=== PATIENT | female | born 1990 | race African-American/Black ===

== ENCOUNTER 2022-07-27 08:56 | Emergency (ER) | payer MEDICAID ==
[~2022-07-27] VITALS: Ht 172.7 cm; Wt 68.0 kg
[2022-07-27] MEDS ORDERED: DEXAMETHASONE 10 MG/ML VIAL IV ONE (10:15)
[2022-07-27 10:51] VITALS: BP 125/64
== END 2022-07-27 10:52 | disposition home or self-care (01) ==
LOC: ER 08:56
DX: R07.0 Pain in throat (principal)
CPT/HCPCS: 96374; 99283; J1100

== ENCOUNTER 2023-09-18 07:39 | Emergency (ER) | payer MEDICAID, OTHER ==
[~2023-09-18] VITALS: Ht 170.2 cm; Wt 73.0 kg
[2023-09-18 07:43] VITALS: O2SAT 98
[2023-09-18] MEDS ORDERED: KETOROLAC 60MG/2ML VIAL IM ONE (09:00)
[2023-09-18 10:26] VITALS: BP 121/79; PULSE 74; RESP 15; TEMP 97.8
[2023-09-18] MEDS ORDERED: D-ME118S56 MT (10:44)
== END 2023-09-18 11:23 | disposition home or self-care (01) ==
LOC: ER 07:39
DX: B34.9 Viral infection, unspecified (principal); Z20.822 Contact with and (suspected) exposure to COVID-19
CPT/HCPCS: 99283; 87426; 81025; 87420; 87804 ×2; 96372; J1885

== ENCOUNTER 2023-09-30 14:37 | Emergency (ER) | payer OTHER ==
[~2023-09-30] VITALS: Ht 172.7 cm; Wt 77.0 kg
[~2023-09-30 14:37] MED LIST: D-ME118S56 MT
[2023-09-30 14:47] VITALS: O2SAT 100
[2023-09-30] MEDS ORDERED: SULF1TAB48 MT (16:58)
[2023-09-30] MEDS ORDERED: CEPH500T MT (17:02)
[2023-09-30 17:17] VITALS: BP 125/77; PULSE 82; RESP 18; TEMP 98.4
== END 2023-09-30 17:19 | disposition home or self-care (01) ==
LOC: ER 14:37
DX: L02.214 Cutaneous abscess of groin (principal); Z98.890 Other specified postprocedural states
CPT/HCPCS: 76882; 99284